=== PATIENT | female | born 1995 ===

== ENCOUNTER 2024-04-12 05:50 | Day surgery (SDC) | payer OTHER ==
[2024-04-05 12:20] VITALS: BP 117/76
[~2024-04-12] VITALS: Ht 170.2 cm; Wt 226.8 kg
[~2024-04-12 05:50] MED LIST: MONTELUKAST SODI4 M1
[2024-04-12] MEDS ORDERED: HEMOSTATIC MATRIX 1 KIT KIT TOP ONE (08:38)
[2024-04-12] MEDS ORDERED: POVIDONE-IODINE 118 ML BOTT TOP ONE (08:39)
[2024-04-12] MEDS ORDERED: BUPIVACAINE LIPOSOME/PF 266 MG/20 ML VIAL IJ ONE (08:39)
[2024-04-12] MEDS ORDERED: DIBUCAINE 30 GM TUBE ONE (08:39)
[2024-04-12] MEDS ORDERED: METRONIDAZOLE/SODIUM CHLORIDE 500 MG/100 ML PIGGYBACK IV ONE (08:39)
[2024-04-12] MEDS ORDERED: CEFTRIAXONE SODIUM 2,000 MG VIAL ONE (08:39)
[2024-04-12] MEDS ORDERED: BUPIVACAINE HCL/MPF 0.5% 30ML VIAL ONE (08:39)
[2024-04-12] MEDS ORDERED: ERTAPENEM SODIUM 1,000 MG VIAL ONE (08:51)
[2024-04-12] MEDS ORDERED: CLINDAMYCIN PHOSPHATE 150 MG/ML (900mg) ONE (08:56)
[2024-04-12] MEDS ORDERED: TAMSULOSIN HCL 0.4 MG CAP PO ONE ×2 (10:00→11:19)
[2024-04-12] MEDS ORDERED: OXYCODONE HCL5 MG PO (10:22)
== END 2024-04-12 15:00 | disposition home or self-care (01) ==
LOC: CIR.AMB 05:50
PROVIDERS: ATTEND Surgery
DX: K60.321 Anal fistula, complex, initial (principal); K62.89 Other specified diseases of anus and rectum; J45.909 Unspecified asthma, uncomplicated; Z88.1 Allergy status to other antibiotic agents